=== PATIENT | male | born 1985 | race Caucasian/White ===

== ENCOUNTER → 2022-05-12 09:43 | Outpatient (CLI) | payer OTHER, SELFPAY ==
--- NOTE | ~2022-05-12 | CT_ITS ---
EXAMINATION: CT brain & sinus wo con DATE: 05/12/2022 10:02 INDICATION: Persistent headaches TECHNIQUE: Computed tomography (CT) of the head and sinuses was performed without intravenous contras t. The mA was adjusted according to patient size. Iterative reconstruction technique was employed. Ex am dose: 674.51 mGy-cm total exam DLP. COMPARISON: None FINDINGS: No intracranial mass lesion or hemorrhage or cerebrovascular accident is detected. No midli ne shift or mass effect. Normal ventricular size. No subdural or epidural hematoma is detected. No fracture or bone destruction of the cranial vault. There is bilateral symmetric soft tissue swelling of the middle and inferior nasal turbinates. There is rightward bowing of the upper portion of the nasal septum, mild medial bowing of the mid hei ght of the nasal septum. Opacified right maxillary ostium and infundibulum. There is mild mucoperiosteal thickening near the l eft maxillary ostium but the ostium and left infundibulum are patent. There is an up to 8 x 13 mm mucus retention cyst or polyp along the lower lateral wall of the left ma xillary sinus. There is diminished size and virtually complete opacification of the right maxillary sinus consistent with chronic right maxillary sinusitis. There are couple of posterior opacified left ethmoid air cells and there is bilateral mild patchy sof t tissue thickening of the ethmoid air cells. Very small left sphenoid sinus with mild mucoperiosteal thickening. The mastoid air cells are normally developed and aerated. Middle and inner ear apparatus appear normal bilaterally. IMPRESSION: No intracranial abnormality Septal deviation Prominence of the nasal turbinates Diminished size and likely chronic opacification of the right maxillary sinus, maxillary ostium and i nfundibulum Mucus retention cyst or polyp of the inferolateral wall the left maxillary antrum, mild mucosal perio steal thickening near the left maxillary ostium, without occlusion of the ostium or infundibulum Small left sphenoid sinus with mild mucosal periosteal thickening. Reviewed, dictated and finalized at [facility]. Reviewed, dictated and finalized at [facility]. IMPRESSION: No intracranial abnormality Septal deviation Prominence of the nasal turbinates Diminished size and likely chronic opacification of the right maxillary sinus, maxillary ostium and infundibulum Mucus retention cyst or polyp of the inferolateral wall the left maxillary antr um, mild mucosal periosteal thickening near the left maxillary ostium, without occlusion of the ostium or infundibulum Small left sphenoid sinus with mild mucosal periosteal thickening.
== END ==
PROVIDERS: PCP Nurse Practitioner; Visit Provider Nurse Practitioner
DX: R51.9 Headache, unspecified (principal); J34.2 Deviated nasal septum; J34.3 Hypertrophy of nasal turbinates; J32.8 Other chronic sinusitis
CPT/HCPCS: 70450; 70486